=== PATIENT | female | born 1990 | race African-American/Black ===

== ENCOUNTER 2021-06-20 13:47 | Emergency (ER) | payer OTHER ==
[2021-06-20 13:54] VITALS: BP 106/57; PULSE 76; TEMP 97; BMI 22.4
[2021-06-20] MEDS ORDERED: KETOROLAC TROMETHAMINE 60 MG/2 ML VIAL IM ONE (15:05)
[2021-06-20] MEDS ORDERED: LIDOCAINE 5% TOPICAL PATCH TP ONE (15:06)
[2021-06-20] MEDS ORDERED: ONDANSETRON *ODT* 4 MG TABLET SL ONE (15:06)
[2021-06-20] MEDS ORDERED: LIDOCAINE 5% TOPICAL PATCH ONE (15:26)
[2021-06-20] MEDS ORDERED: KETOROLAC TROMETHAMINE 30 MG/1 ML VIAL ONE (15:26)
[2021-06-20] MEDS ORDERED: ONDANSETRON *ODT* 4 MG TABLET ONE (15:26)
[2021-06-20] MEDS ORDERED: LIDOCAINE PATCH REMOVAL MC SCH (22:00)
== END 2021-06-20 16:29 | disposition home or self-care (01) ==
LOC: JER 13:47 → JERFT 13:47
DX: M54.2 Cervicalgia (principal)
CPT/HCPCS: 72040-TC; 99283-25; Q0162

== ENCOUNTER 2023-04-12 17:53 | Emergency (ER) | payer OTHER ==
[2023-04-12 17:57] VITALS: BP 110/65; PULSE 88; RESP 18; TEMP 98.2; BMI 24.9
== END 2023-04-12 18:44 | disposition left against medical advice (07) ==
LOC: JER 17:53
DX: O20.9 Hemorrhage in early pregnancy, unspecified (principal); Z3A.12 12 weeks gestation of pregnancy
CPT/HCPCS: 99281-25